=== PATIENT | born 1995 | race Caucasian/White ===

== ENCOUNTER 2021-10-03 21:12 | Emergency (ER) | payer OTHER ==
[~2021-10-03] VITALS: Ht 175.3 cm; Wt 140.6 kg
[2021-10-03 21:41] VITALS: BP 131/85
[2021-10-03] MEDS ORDERED: NAPR-54 PO (21:56)
[2021-10-03] MEDS ORDERED: CIPR500T4 PO (21:56)
--- NOTE | 2021-10-03 22:00 | NUR ---
DR STYLES EXAMINING PT IN TRIAGE. MYSELF ACCOMPANYING
== END 2021-10-03 22:00 | disposition home or self-care (01) ==
LOC: EDSEX 21:12 → MED 21:12
DX: N45.1 Epididymitis (principal)
CPT/HCPCS: 99283